=== PATIENT | female | born 1940 | race Hispanic/Latino ===

== ENCOUNTER 2020-03-18 10:32 | Day surgery (SDC) | payer OTHER ==
--- NOTE | 2020-03-18 11:09 | Anesthesia Day of Surgery ---
Anesthesia Day of Surgery - Day of Surgery Patient Examined: Yes Patient H&P Reviewed: Yes Patient is NPO: Yes
--- NOTE | 2020-03-18 11:12 | Anesthesia Consultation ---
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
[2020-03-18] MEDS ORDERED: HYDROmorphone 1 MG/1 ML INJ IV PRN (11:30)
[2020-03-18] MEDS ORDERED: ONDANSETRON 4 MG/2 ML INJ IV PRN (11:30)
[2020-03-18] MEDS ORDERED: LACTATED RINGERS 1,000 ML IV SCH (12:00)
[2020-03-18] MEDS ORDERED: MIDAZOLAM 2 MG/2 ML INJ IV SCH (12:00)
[2020-03-18] MEDS ORDERED: MIDAZOLAM 2 MG/2 ML INJ ONE (12:03)
[2020-03-18] MEDS ORDERED: ceFAZolin/STERILE WATER 2 GM/20 ML SYRINGE IV NR (12:15)
[2020-03-18] MEDS ORDERED: propofoL 200 MG/20 ML VIAL IV ONE (12:19)
[2020-03-18] MEDS ORDERED: LIDOCAINE MPF (2%) 20 MG/1 ML VIAL 5 ML ONE (12:19)
[2020-03-18] MEDS ORDERED: ONDANSETRON 4 MG/2 ML INJ ONE (12:53)
[2020-03-18] MEDS ORDERED: dexAMETHasone 20 MG/5 ML VIAL ONE (12:53)
[2020-03-18] MEDS ORDERED: WATER FOR IRRIG STERILE 2000 ML IR ONE (13:11)
[2020-03-18] MEDS ORDERED: WATER FOR IRRIG STERILE 1,500 ML BOTTLE IR ONE (13:11)
[2020-03-18] MEDS: HYDROmorphone 1 MG/1 ML INJ IV PRN ×2 (13:16→13:33)
--- NOTE | 2020-03-18 13:23 | Post Operative Note ---
Date of procedure: 03/18/20 Pre-op diagnosis: erythema Post-op diagnosis: same Findings: as above Procedure: cysto rpg bx Anesthesia: GETA Surgeon: ANNABEL RAMIREZ Pathology: list (bladder) Specimen disposition: to lab Condition: stable Disposition: PACU
--- NOTE | 2020-03-18 13:24 | Discharge Summary ---
Short Stay Discharge Plan Activity: other Weight Bearing Status: Full Weight Bearing Diet: low fat, low cholesterol, low salt Special Instructions: other (inc fluids ) Follow up with: [facility] [Primary Care Provider] - 7 Days ANNABEL RAMIREZ MD [Staff Physician] - 7 Days Forms: Outpatient Surgery DC Inst.
--- NOTE | 2020-03-18 13:53 | Operative Report ---
PREOPERATIVE DIAGNOSIS: Chronic cystitis. POSTOPERATIVE DIAGNOSES: Chronic cystitis. PROCEDURES: Cystoscopy, biopsy of erythematous areas and fulguration retrograde. SURGEON: Dr. Brown. ANESTHESIA: General. FINDINGS: This is a woman with some erythema, hematuria, now presents for cystoscopy. DESCRIPTION OF PROCEDURE: The patient was brought to the operating room and placed on the operating table. Following induction of anesthesia, placed in lithotomy position, prepped and draped in usual sterile fashion. Cystourethroscopy showed some mild erythema posterior wall and the trigone. This was biopsied. Retrograde showed delicate system bilaterally. The patient tolerated the procedure well. No significant bleeding, brought to recovery room without a catheter in stable condition. JOB# [id number] LEELEE/MARTINE
[2020-03-18 13:54] VITALS: BP 151/67
--- NOTE | 2020-03-18 14:35 | Post Anesthesia Evaluation ---
- Post Anesthesia Evaluation Patient Participated: Yes Airway Patent: Yes Stable Respiratory Function: Yes Nausea/Vomiting: No Temp > 96.8F: Yes Pain Manageable: Yes Adequeate Hydration: Yes Anesthesia Complications: No Block Receding Appropriately: Not Applicable Patient on Ventilator: No
--- NOTE | 2020-03-18 15:23 | Fluoroscopy Report ---
FL retrograde urography INDICATION / CLINICAL INFORMATION: ACUTE CYSTITIS. COMPARISON: None available. FINDINGS: Bilateral retrograde ureterography. Fluoroscopy time: 14 seconds. Fluoroscopic images: 5. Signer Name: Arnol Dennis MD Signed: 03/18/2020 3:22 PM Workstation Name: [id number]
== END 2020-03-18 14:34 | disposition home or self-care (01) ==
LOC: OR 10:32
PROVIDERS: ATTEND Urology
DX: N30.20 Other chronic cystitis without hematuria (principal); N32.89 Other specified disorders of bladder; I11.0 Hypertensive heart disease with heart failure; K21.9 Gastro-esophageal reflux disease without esophagitis; M19.90 Unspecified osteoarthritis, unspecified site; E89.0 Postprocedural hypothyroidism; Z91.040 Latex allergy status; Z88.2 Allergy status to sulfonamides; Z88.8 Allergy status to other drugs, medicaments and biological substances; Z79.899 Other long term (current) drug therapy; Z87.891 Personal history of nicotine dependence; Z90.49 Acquired absence of other specified parts of digestive tract; Z85.118 Personal history of other malignant neoplasm of bronchus and lung; Z87.440 Personal history of urinary (tract) infections; Z98.890 Other specified postprocedural states; Z80.8 Family history of malignant neoplasm of other organs or systems; Z90.710 Acquired absence of both cervix and uterus
CPT/HCPCS: 52204; 74420; 88305; A4217; C1758; J1100; J1170; J2250; J2405; J2704; J7120; Q9967